=== PATIENT | male | born 2000 | race Caucasian/White ===

== ENCOUNTER 2020-12-31 12:00 | Outpatient (CLI) | payer BC, SELFPAY | END 2020-12-31 12:01 | disposition home or self-care (01) | LOC: SLEEP 01-01 09:53 | PROVIDERS: Family Provider Family Medicine; Visit Provider Family Medicine | DX: R51.9 Headache, unspecified (principal); R40.0 Somnolence | CPT/HCPCS: G0399 ==

== ENCOUNTER 2021-02-02 20:00 | Outpatient (CLI) | payer BC, SELFPAY | END 2021-02-02 20:01 | disposition home or self-care (01) | LOC: SLEEP 02-03 10:35 | PROVIDERS: Family Provider Family Medicine; Visit Provider Family Medicine | DX: G47.33 Obstructive sleep apnea (adult) (pediatric) (principal) | CPT/HCPCS: 95811 ==

== ENCOUNTER → 2024-04-30 10:08 | Outpatient (BNVA) | payer SELFPAY | PROVIDERS: PCP Family Medicine; Visit Provider Family Medicine | DX: Z98.84 Bariatric surgery status (principal) | CPT/HCPCS: 80053; 82306; 82607; 83735; 85025 ==

== ENCOUNTER → 2024-10-31 12:56 | Outpatient (BNVA) | payer SELFPAY | PROVIDERS: PCP Family Medicine; Visit Provider Family Medicine | DX: R07.9 Chest pain, unspecified (principal); F41.9 Anxiety disorder, unspecified; Z98.84 Bariatric surgery status | CPT/HCPCS: 80053; 82306; 82607; 82728; 82746; 83735; 83921; 84134; 84425; 84443; 85025 ==